=== PATIENT | female | born 1955 | race Caucasian/White ===

== ENCOUNTER 2016-04-19 13:51 | Inpatient (IN) | payer MEDICAID ==
--- NOTE | 2016-04-19 14:25 | ED Physician Chart ---
Chief Complaint/HPI - Patient Information Date Seen:: 04/19/16 Time Seen:: 14:00 Chief Complaint:: disorientation History of Present Illness:: at mental health outpatient clinic patient was disoriented (thought it was the night and stated it looked dark outside). Almost fell twice; had to be caught. Developed frontal headache last night and has more left leg weakness than normal now. Last December fell hurting left leg which has been weak since then; uses a walker at home. Allergies:: Allergies Allergy/AdvReac Type Severity Reaction Status Date / Time No Known Allergies Allergy Verified 04/19/16 14:08 Vitals:: Vital Signs - 8 hr 04/19/16 14:08 Temp 97.8 F HR 92 RR 18 BP 152/76 O2 Sat % 97 Review:: EMS run form Reviewed Review of Systems - Review of Systems General/Constitutional: No fever, No chills Skin: No skin lesions Head: Headache Eyes: Acuity change ENT: No earache Neck: No neck pain Cardio Vascular: No chest pain Pulmonary: No SOB GI: No nausea, No vomiting G/U: No dysuria, No frequency Musculoskeletal: No bone or joint pain Endocrine: No polyuria, No polydipsia Psychiatric: Prior psych history, Depression Hematopoietic: No bruising Allergic/Immuno: No urticaria Neurological: Focal symptoms Past Medical History - Past Medical History Past Medical History: HTN, Other (major depression) Family History: Diabetes [place] Social History: Smoker, No Alcohol Surgical History: Cholecystectomy, Psychiatricy History: Depression Medication: None Family Medical History - Family Member Mother History Unknown: Yes Physical Exam - Physical Examination General/Constitutional: Well-developed, well-nourished, No distress Other Gen/Cons comments:: states does not know the year but answers other questions coherently Head: Atraumatic Eyes: Lids, conjuctiva normal, PERRL Skin: Nl inspection, No rash, No skin lesions, No ecchymosis ENMT: External ears, nose nl, TM canals nl, Nasal exam nl, Lips, teeth, gums nl , Oropharynx nl, Tonsils nl Neck: No nuchal rigidity Respiratory: Nl effort/Exclusion, Clear to Auscultation Cardio Vascular: RRR GI: No tenderness/rebounding/guarding, No organomegaly, No hernia, Nondistended , No mass/bruits : No CVA tenderness Extremities: No tenderness or effusion Other Neuro/Psych comments:: 1/ drooping left side of mouth; equal decreased hand strength; lifts both legs against gravity Misc: Normal back Labs/Radiology/EKG Results - Lab Results Comments:: Laboratory Results - last 24 hr 04/19/16 04/19/16 04/19/16 14:10 14:10 14:10 WBC 9.1 RBC 3.72 L Hgb 12.0 Hct 35.0 MCV 94.0 MCH 32.2 H MCHC Differential 34.3 RDW 11.0 L Plt Count 257 MPV 8.4 Neutrophils % 62.4 Lymphocytes % 30.0 Monocytes % 6.6 Eosinophils % 0.4 Basophils % 0.6 Sodium 131 L Potassium 3.9 Chloride 101 Carbon Dioxide 23.8 Anion Gap 10.1 BUN 10 Creatinine 0.5 L Est GFR ( Amer) > 60.0 Est GFR (Non-Af Amer) > 60.0 BUN/Creatinine Ratio 20.0 Glucose 99 Calcium 9.2 Magnesium 1.8 L Troponin I B-Natriuretic Peptide 12.9 04/19/16 14:10 WBC RBC Hgb Hct MCV MCH MCHC Differential RDW Plt Count MPV Neutrophils % Lymphocytes % Monocytes % Eosinophils % Basophils % Sodium Potassium Chloride Carbon Dioxide Anion Gap BUN Creatinine Est GFR ( Amer) Est GFR (Non-Af Amer) BUN/Creatinine Ratio Glucose Calcium Magnesium Troponin I < 0.01 L B-Natriuretic Peptide - Radiology Results Results: CT head: mild atrophy; CXR chest: negative - EKG Interpretations Rhythm: NSR [place]: normal Rate: 85 Comments:: no ST-T changes ED Septic Shock - . Is Septic Shock (SBP<90, OR Lactate>4 mmol\L) present?: No - <6hrs of presentation: Vital Signs: Vital Signs - 8 hr 04/19/16 14:08 Temp 97.8 F HR 92 RR 18 BP 152/76 O2 Sat % 97 Reassessment (Disposition) - Reassessment Reassessment Condition:: Unchanged - Diagnosis Diagnosis:: altered mental status - Patient Disposition Admitted to:: Med/Surg Spoke to:: Immanuel Wagner Admitting Medical Physician:: Immanuel Wagner Condition at Disposition:: Stable, Unchanged ED Discharge Plan - Patient Disposition Admit/Discharge/Transfer: Acute Care w/in this hosp Condition at Disposition: Improved
[2016-04-19] MEDS ORDERED: Sodium Chloride 0.9% 1,000 ML IV ONE ×2 (14:34→21:53)
[2016-04-19 14:53] LABS: % BASOPHILS 0.6 % (0.0-2.0); % EOSINOPHILS 0.4 % (0.0-5.0); % MONOCYTES 6.6 % (2.0-10.0); % NEUTROPHILS 62.4 % (40.0-80.0); MEAN CORPUSCULAR HEMOGLOBIN 32.2 pg (27.0-31.0); MEAN CORPUSCULAR HGB CONC 34.3 pg (28.0-36.0); MEAN PLATELET VOLUME 8.4 fl; NEUTROPHILE ABSOLUTE 5.7 Th/cmm (1.8-8.0); PLATELET COUNT 257 Th/cmm (150-400); RED BLOOD COUNT 3.72 Mil/cmm (3.80-5.10); WHITE BLOOD COUNT 9.1 Th/cmm (4.8-10.8)
[2016-04-19 15:05] LABS: ANION GAP 10.1 (7.0-16.0); BUN - UREA NITROGEN 10 mg/dL (7-25); CALCIUM SERUM 9.2 mg/dL (8.6-10.3); CARBON DIOXIDE 23.8 mEq/L (21.0-31.0); CHLORIDE 101 mEq/L (98-107); CREATININE - SERUM 0.5 mg/dL (0.6-1.2); GLUCOSE 99 mg/dL (70-105); MAGNESIUM 1.8 mg/dL (1.9-2.7); POTASSIUM SERUM 3.9 mEq/L (3.5-5.1); SODIUM SERUM 131 mEq/L (136-145)
--- NOTE | 2016-04-19 15:56 | Diagnostic Imaging Report ---
CT scan of the brain without intravenous contrast HISTORY: Stroke, CVA Total DLP equals 549 CTDI equals 34.0 Axial sections were obtained from the base of the skull to the vertex. There is a normal ventricular system size. There is slight prominence of cerebral sulci and subarachnoid cisterns reflecting mild atrophy. No acute parenchymal abnormalities. No intracerebral hemorrhage. No mass effect or shift of midline structures. No extra-axial masses or abnormal fluid collections. Atherosclerotic calcification seen in the region of the vertebral and basilar arteries at the base of the skull. IMPRESSION: 1. No acute abnormalities were 2. Mild cerebral atrophy 3. Mild atherosclerotic vascular changes
--- NOTE | 2016-04-19 15:57 | Diagnostic Imaging Report ---
Portable chest x-ray History: Shortness of breath Allowing for portable technique the heart size is normal. No focal pulmonary parenchymal processes. No hilar or mediastinal abnormalities. Impression: No acute abnormalities.
[2016-04-19 17:13] LABS: URINE BILIRUBIN NEGATIVE (NEGATIVE); URINE BLOOD NEGATIVE (NEGATIVE); URINE COLOR YELLOW; URINE GLUCOSE (UA) NEGATIVE (NEGATIVE); URINE KETONE NEGATIVE (NEGATIVE); URINE PROTEIN NEGATIVE (NEGATIVE); URINE RBC NONE SEEN /hpf (0-5); URINE UROBILINOGEN 0.2 E.U./dL (0.2 - 1.0); URINE WBC 0-2 /hpf (0-5)
[2016-04-19 17:14] LABS: URINE BACTERIA OCCASIONAL /hpf (NONE SEEN); URINE EPITHELIAL CELLS RARE /lpf (FEW)
--- NOTE | 2016-04-19 20:26 | Admit Criteria Form ---
Admit Criteria Forms - Admit Criteria Diagnosis: MENTAL STATUS CHANGE Clinical Indications for Inpatient Care (Place 'X' for any and all applicable criteria): Ongoing inpatient care may be needed for ANY ONE of the following(1)(2)(3)(5)(6) : [X]I. Suspected serious etiology (eg, medical disorder, FRE[employer] event) of mental status change [ ]II. Danger to self or others not manageable at lower level of care [ ]III. Grave disability (eg, inability to perform self care necessary at lower level of care) [ ]IV. Agitation or inappropriate behavior interfering with care for primary condition (eg, attempting to discontinue lines or drains prematurely, unable to cooperate with respiratory care) [ ]V. Delirium [A] [D][E] as described by ANY ONE of the following(26): [ ]a) Delirium due to alcohol or sedative [F] withdrawal [ ]b) Delirium of uncertain etiology that has not responded to appropriate empiric treatment [ ]c) Delirium that prevents performance of a life-sustaining function (eg, feeding or hydrating oneself) [ ]. General contraindications and/or Inappropriate clinical situations for Observational Care in patients with Mental Status Change, when ANY ONE of the following is required: [ ]a) Prediction of prolongation of LOS based on ANY ONE of the following may be considered as a contraindication for observational care 2, 3, 4, 5, 6, 7, 8, 9, 10, 11 [ ]i) Age > 65 yrs. [ ]ii) Patient arriving by ambulance [ ]iii) Patient with high acuity [ ]iv) Patient requiring vital sign monitoring [ ]v) Patient on IV medication [ ]b) Systolic blood pressures 180mmHg 3,12 [ ]c) Patient with altered mental status including delirium and other alteration of consciousness, (3) [ ]d) Patient whose discharge disposition will be to a nursing home home or rehabilitation home should not be managed in Emergency Department Observation Unit. CMS rule requires 3 days hospital stay before such placement.3,13 [ ]e) Patient with failure to thrive due to broad array of etiologies 3,16,17 [ ]f) Inability to ambulate 3,14 Extended stay beyond goal length of stay for the primary condition may be needed until ALL of the following are present(3)(5): [ ]a) Underlying medical etiology of mental status change is absent, or has been established and adequately treated [ ]b) Danger to self or others is absent or manageable at lower level of care. [ ]c) Behavior crisis management, including physical or chemical restraints, is not required or available at lower level of car [ ]d) Substance or alcohol withdrawal is absent or manageable at lower level of care. [ ]e) Behavioral symptoms (eg, agitation, somnolence, inappropriate behavior) are absent, or are manageable at lower level of care. The original [facility] content created by [facility] has been revised. The portions of the content which have been revised are identified through the use of italic text or in bold, and [facility] has neither reviewed nor approved the modified material. All other unmodified content is copyright [facility]. Please see references footnoted in the original [facility] edition 2016 Admit Criteria Met?: Yes
[2016-04-20] MEDS: HYDROmorphone 1 mg/mL 1mL Syr IVP PRN ×2 (01:39→16:38)
--- NOTE | 2016-04-20 08:48 | General Progress Note ---
Subjective - Review of Systems Service Date: 04/20/16 Subjective: Confused Objective - Results Result Diagrams: 04/19/16 14:10 04/19/16 14:10 Recent Labs: Laboratory Last Values WBC 9.1 Th/cmm (4.8-10.8) 04/19/16 14:10 RBC 3.72 Mil/cmm (3.80-5.10) L 04/19/16 14:10 Hgb 12.0 gm/dL (11.7-15.5) 04/19/16 14:10 Hct 35.0 % (35.0-45.0) 04/19/16 14:10 MCV 94.0 fl (81-100) 04/19/16 14:10 MCH 32.2 pg (27.0-31.0) H 04/19/16 14:10 MCHC Differential 34.3 pg (28.0-36.0) 04/19/16 14:10 RDW 11.0 % (11.5-20.0) L 04/19/16 14:10 Plt Count 257 Th/cmm (150-400) 04/19/16 14:10 MPV 8.4 fl 04/19/16 14:10 Neutrophils % 62.4 % (40.0-80.0) 04/19/16 14:10 Lymphocytes % 30.0 % (20.0-50.0) 04/19/16 14:10 Monocytes % 6.6 % (2.0-10.0) 04/19/16 14:10 Eosinophils % 0.4 % (0.0-5.0) 04/19/16 14:10 Basophils % 0.6 % (0.0-2.0) 04/19/16 14:10 Sodium 131 mEq/L (136-145) L 04/19/16 14:10 Potassium 3.9 mEq/L (3.5-5.1) 04/19/16 14:10 Chloride 101 mEq/L (98-107) 04/19/16 14:10 Carbon Dioxide 23.8 mEq/L (21.0-31.0) 04/19/16 14:10 Anion Gap 10.1 (7.0-16.0) 04/19/16 14:10 BUN 10 mg/dL (7-25) 04/19/16 14:10 Creatinine 0.5 mg/dL (0.6-1.2) L 04/19/16 14:10 Est GFR ( Amer) > 60.0 ml/min (>90) 04/19/16 14:10 Est GFR (Non-Af Amer) > 60.0 ml/min 04/19/16 14:10 BUN/Creatinine Ratio 20.0 04/19/16 14:10 Glucose 99 mg/dL (70-105) 04/19/16 14:10 Calcium 9.2 mg/dL (8.6-10.3) 04/19/16 14:10 Magnesium 1.8 mg/dL (1.9-2.7) L 04/19/16 14:10 Troponin I < 0.01 ng/mL (0.01-0.05) L 04/19/16 14:10 B-Natriuretic Peptide 12.9 pg/mL (5.0-100.0) 04/19/16 14:10 Urine Source RANDOM 04/19/16 16:15 Urine Color YELLOW 04/19/16 16:15 Urine Clarity CLEAR (CLEAR) 04/19/16 16:15 Urine pH 7.0 04/19/16 16:15 Ur Specific [place] 1.015 (1.005-1.030) 04/19/16 16:15 Urine Protein NEGATIVE mg/dL (NEGATIVE) 04/19/16 16:15 Urine Glucose (UA) NEGATIVE mg/dL (NEGATIVE) 04/19/16 16:15 Urine Ketones NEGATIVE mg/dL (NEGATIVE) 04/19/16 16:15 Urine Blood NEGATIVE (NEGATIVE) 04/19/16 16:15 Urine Nitrate NEGATIVE (NEGATIVE) 04/19/16 16:15 Urine Bilirubin NEGATIVE (NEGATIVE) 04/19/16 16:15 Urine Urobilinogen 0.2 E.U./dL (0.2 - 1.0) 04/19/16 16:15 Ur Leukocyte Esterase SMALL (NEGATIVE) H 04/19/16 16:15 Urine RBC NONE SEEN /hpf (0-5) 04/19/16 16:15 Urine WBC 0-2 /hpf (0-5) 04/19/16 16:15 Ur Epithelial Cells RARE /lpf (FEW) 04/19/16 16:15 Urine Bacteria OCCASIONAL /hpf (NONE SEEN) 04/19/16 16:15 - Physical Exam Vitals and I&O: Vital Signs Temp 99 F 04/20/16 04:00 Pulse 114 04/20/16 04:00 Resp 18 04/20/16 04:00 BP 125/68 04/20/16 04:00 Pulse Ox 92 04/20/16 04:00 Intake & Output 04/19/16 04/20/16 04/20/16 18:59 06:59 18:59 Other: Stool Characteristics Soft Formed Active Medications: Current Medications Acetaminophen (Tylenol) 650 mg PO Q6H PRN PRN Reason: MODERATE PAIN Stop: 06/18/16 21:45 Last Admin: 04/19/16 22:18 Dose: 650 mg Hydromorphone HCl (Dilaudid) 1 mg IVP Q4HR PRN PRN Reason: FOR SEVERE PAIN Stop: 06/18/16 21:47 Last Admin: 04/20/16 01:39 Dose: 1 mg Sodium Chloride (Nacl 0.9%) 1,000 mls @ 75 mls/hr IV .[id number] ONE Stop: 04/20/16 11:12 Last Admin: 04/19/16 22:17 Dose: 75 mls/hr Miscellaneous (Sertraline Hcl [Zoloft]) 100 mg PO DAILY JAMES Stop: 06/19/16 08:59 Ondansetron HCl (Zofran) 4 mg IV Q6H PRN PRN Reason: PRN FOR N/V Stop: 06/18/16 21:59 General: Other (Awake, confused, not responding to question) HEENT: Atraumatic Cardiovascular: Regular rate Lungs: Clear to auscultation Abdomen: Bowel sounds, Soft Extremities: Other Neurological: Other (Unstable gait) Skin: Other (warm and dry) Psych/Mental Status: Other (Confused) Assessment/Plan - Problem List Patient Problems: All Active Problems ALTERED (Acute ~04/19/16) - Assessment Assessment: Patient is awake, confused, not responding to question. We did not the base level of patient, will contact family. - Plan Plan: Psychiatric meds are stopped. Ammonia level request, consult with psychiatry is request.
[2016-04-20] MEDS ORDERED: ZIPRASIDONE HCL 80 MG PO SCH (09:00)
--- NOTE | 2016-04-20 09:07 | History & Physical ---
CHIEF COMPLAINT: Increase in confusion. HISTORY OF PRESENT ILLNESS: This is the case of a 61-year-old female who has history of mental illness. She is a patient of Psychiatry Clinic. The patient was found that she has been increasing in disorientation and confusion. She almost fell two times, increasing leg weakness, reason why the patient was brought to Emergency Room for evaluation and treatment. PAST MEDICAL HISTORY: The patient has past medical history of hypertension and major depression. SOCIAL HISTORY: It is not clear at this moment if the patient lives at home or in the facility. The patient denies alcohol, drugs, or smoking. FAMILY HISTORY: Diabetes mellitus. PAST SURGICAL HISTORY: Cholecystectomy and . MEDICATIONS: Reviewed. REVIEW OF SYSTEMS: Information was not obtained secondary to the patient's mental condition. PHYSICAL EXAMINATION: GENERAL: fairly nourished and developed female, awake, confused, not oriented, not responding to questions. HEENT: Head is normocephalic and atraumatic. Eyes: Pupils reactive to light. Nose: No evidence of nasal obstruction. Ears: No evidence of any discharge. Mouth: Fairly keep. LUNGS: Bilateral air entry. HEART: Regular rate and rhythm. ABDOMEN: Soft. Nontender. Bowel sound present. EXTREMITIES: Full movement of all extremities, but it seems that there is no muscle strength. NEUROLOGICAL: The patient is awake, alert, confused, not oriented, not responding to questions. Neurological examination was not completed secondary to the patient's mental condition. IMPRESSION: 1. Altered mental status. Increasing confusion. 2. History of depression. PLAN: 1. The patient will be admitted in the medical/surgical floor. 2. The patient will be continuing on home medications. 3. Consult with Psychiatry. 4. CBC, CMP, TSH at a.m. 5. Regular diet. JOB# [id number]
--- NOTE | 2016-04-21 03:59 | Consultation ---
The patient was seen, chart reviewed, discussed with staff. HISTORY OF PRESENT ILLNESS: The patient is a 61-year-old female who was seen in the presence of her caregiver, has a history of depression, anxiety, paranoia, still feeling restless at times. The patient reports feeling sad. The patient denied having wishes, suicidal thoughts, but at times she feels paranoid and thinking that people are watching her. PAST PSYCHIATRIC HISTORY: Prior hospitalization in February 2016 ____ [facility] as per report from caregiver. PAST MEDICAL HISTORY: Deferred to Dr. Bernard Landon. PSYCHOSOCIAL HISTORY: The patient requires care. She has a caregiver. The patient lives at home. MENTAL STATUS EXAMINATION: The patient is in bed, makes fair eye contact. Speech is minimal, short sentences, mostly in [place]. Affect seem to be depressed, somewhat paranoid. No auditory hallucinations, oriented to time, place and person. ASSESSMENT: Major depressive disorder with psychosis. PLAN: We will continue Zoloft 100 mg daily, Geodon was discontinued, use Zyprexa 2.5 mg p.o. at nighttime to help with paranoia, anxiety and fear. Monitor condition closely. [facility]# [id number]
[2016-04-21 06:25] LABS: % BASOPHILS 0.7 % (0.0-2.0); % EOSINOPHILS 0.8 % (0.0-5.0); % LYMPHOCYTES 26.9 % (20.0-50.0); % NEUTROPHILS 64.6 % (40.0-80.0); ALB/GLOB RATIO 1.5 (1.0-1.8); ALKALINE PHOSPHATASE 82 U/L (34-104); ANION GAP 5.8 (7.0-16.0); BILIRUBIN,TOTAL 0.3 mg/dL (0.3-1.0); BUN - UREA NITROGEN 8 mg/dL (7-25); CALCIUM SERUM 8.9 mg/dL (8.6-10.3); CARBON DIOXIDE 24.8 mEq/L (21.0-31.0); CHLORIDE 106 mEq/L (98-107); CREATININE - SERUM 0.4 mg/dL (0.6-1.2); GLUCOSE 87 mg/dL (70-105); HEMATOCRIT 30.4 % (35.0-45.0); HEMOGLOBIN 10.6 gm/dL (11.7-15.5); MEAN CELL VOLUME 94.7 fl (81-100); MEAN CORPUSCULAR HGB CONC 34.8 pg (28.0-36.0); MEAN PLATELET VOLUME 7.9 fl; NEUTROPHILE ABSOLUTE 3.4 Th/cmm (1.8-8.0); PLATELET COUNT 244 Th/cmm (150-400); POTASSIUM SERUM 3.6 mEq/L (3.5-5.1); RED BLOOD COUNT 3.21 Mil/cmm (3.80-5.10); RED CELL DISTRIBUTION WIDTH 11.2 % (11.5-20.0); SGOT 36 U/L (13-39); SGPT/ALT 26 U/L (7-52); SODIUM SERUM 133 mEq/L (136-145); WHITE BLOOD COUNT 5.2 Th/cmm (4.8-10.8)
--- NOTE | 2016-04-21 11:11 | History & Physical ---
HISTORY OF PRESENT ILLNESS: The patient is a 61-year-old. The patient admitted with depression and confusion. The patient with history of psychiatric illness. Seen in the psychiatric facility clinic. The patient is getting more paranoid and restless. Psychiatric report noted. PAST MEDICAL HISTORY: Hypertension and depression. MEDICATIONS: As per reconciliation. SOCIAL HISTORY: She does not smoke or drink. REVIEW OF SYSTEMS: On direct questioning, the patient no marked headache, no seizures. She will answer questions. No abdominal pain. No constipation or diarrhea. PHYSICAL EXAMINATION: VITAL SIGNS: Temperature 98.4, blood pressure 130/70, pulse is 74. NECK: Supple. No neck bruits. HEART: Sounds S1, S2. LUNGS: Clear. ABDOMEN: Soft. NEUROLOGIC: The patient is awake. She will give me her name. She tells me where she lives. She thought today was Saturday, but she did not know the month. Many times, she will avoid eye contact. She is able to name simple objects like pen and glasses. Cranial: Pupils react to light. No facial weakness. She will lift both arms up. No abnormal movements. Legs were equal. Reflexes -1. INVESTIGATIONS: CT scan of the head, no acute process. IMPRESSION: 1. Depression. 2. The patient with encephalopathy. 3. Psychosis. 4. Underlying history of hypertension. 5. Management as per Psychiatry. [facility]# [id number]
--- NOTE | 2016-04-21 11:43 | General Progress Note ---
Subjective - Review of Systems Service Date: 04/21/16 Subjective: I am better Objective - Results Result Diagrams: 04/21/16 05:10 04/21/16 05:10 Recent Labs: Laboratory Last Values WBC 5.2 Th/cmm (4.8-10.8) D 04/21/16 05:10 RBC 3.21 Mil/cmm (3.80-5.10) L 04/21/16 05:10 Hgb 10.6 gm/dL (11.7-15.5) L 04/21/16 05:10 Hct 30.4 % (35.0-45.0) L D 04/21/16 05:10 MCV 94.7 fl (81-100) 04/21/16 05:10 MCH 33.0 pg (27.0-31.0) H 04/21/16 05:10 MCHC Differential 34.8 pg (28.0-36.0) 04/21/16 05:10 RDW 11.2 % (11.5-20.0) L 04/21/16 05:10 Plt Count 244 Th/cmm (150-400) 04/21/16 05:10 MPV 7.9 fl 04/21/16 05:10 Neutrophils % 64.6 % (40.0-80.0) 04/21/16 05:10 Lymphocytes % 26.9 % (20.0-50.0) 04/21/16 05:10 Monocytes % 7.0 % (2.0-10.0) 04/21/16 05:10 Eosinophils % 0.8 % (0.0-5.0) 04/21/16 05:10 Basophils % 0.7 % (0.0-2.0) 04/21/16 05:10 Sodium 133 mEq/L (136-145) L 04/21/16 05:10 Potassium 3.6 mEq/L (3.5-5.1) 04/21/16 05:10 Chloride 106 mEq/L (98-107) 04/21/16 05:10 Carbon Dioxide 24.8 mEq/L (21.0-31.0) 04/21/16 05:10 Anion Gap 5.8 (7.0-16.0) L 04/21/16 05:10 BUN 8 mg/dL (7-25) 04/21/16 05:10 Creatinine 0.4 mg/dL (0.6-1.2) L 04/21/16 05:10 Est GFR ( Amer) > 60.0 ml/min (>90) 04/21/16 05:10 Est GFR (Non-Af Amer) > 60.0 ml/min 04/21/16 05:10 BUN/Creatinine Ratio 20.0 04/21/16 05:10 Glucose 87 mg/dL (70-105) 04/21/16 05:10 Calcium 8.9 mg/dL (8.6-10.3) 04/21/16 05:10 Magnesium 1.7 mg/dL (1.9-2.7) L 04/21/16 05:10 Total Bilirubin 0.3 mg/dL (0.3-1.0) 04/21/16 05:10 AST 36 U/L (13-39) 04/21/16 05:10 ALT 26 U/L (7-52) 04/21/16 05:10 Alkaline Phosphatase 82 U/L (34-104) 04/21/16 05:10 Ammonia 49 umol/L (16-53) 04/20/16 11:05 Troponin I < 0.01 ng/mL (0.01-0.05) L 04/19/16 14:10 B-Natriuretic Peptide 12.9 pg/mL (5.0-100.0) 04/19/16 14:10 Total Protein 5.9 gm/dL (6.0-8.3) L 04/21/16 05:10 Albumin 3.5 gm/dL (3.7-5.3) L 04/21/16 05:10 Globulin 2.4 gm/dL 04/21/16 05:10 Albumin/Globulin Ratio 1.5 (1.0-1.8) 04/21/16 05:10 TSH 1.42 uIU/ml (0.34-5.60) 04/21/16 05:10 Urine Source RANDOM 04/19/16 16:15 Urine Color YELLOW 04/19/16 16:15 Urine Clarity CLEAR (CLEAR) 04/19/16 16:15 Urine pH 7.0 04/19/16 16:15 Ur Specific [place] 1.015 (1.005-1.030) 04/19/16 16:15 Urine Protein NEGATIVE mg/dL (NEGATIVE) 04/19/16 16:15 Urine Glucose (UA) NEGATIVE mg/dL (NEGATIVE) 04/19/16 16:15 Urine Ketones NEGATIVE mg/dL (NEGATIVE) 04/19/16 16:15 Urine Blood NEGATIVE (NEGATIVE) 04/19/16 16:15 Urine Nitrate NEGATIVE (NEGATIVE) 04/19/16 16:15 Urine Bilirubin NEGATIVE (NEGATIVE) 04/19/16 16:15 Urine Urobilinogen 0.2 E.U./dL (0.2 - 1.0) 04/19/16 16:15 Ur Leukocyte Esterase SMALL (NEGATIVE) H 04/19/16 16:15 Urine RBC NONE SEEN /hpf (0-5) 04/19/16 16:15 Urine WBC 0-2 /hpf (0-5) 04/19/16 16:15 Ur Epithelial Cells RARE /lpf (FEW) 04/19/16 16:15 Urine Bacteria OCCASIONAL /hpf (NONE SEEN) 04/19/16 16:15 - Physical Exam Vitals and I&O: Vital Signs Temp 98.1 F 04/21/16 08:00 Pulse 92 04/21/16 08:00 Resp 18 04/21/16 08:00 BP 128/76 04/21/16 08:00 Pulse Ox 95 04/21/16 08:00 Intake & Output 04/20/16 04/21/16 04/21/16 18:59 06:59 18:59 Intake Total 200 Balance 200 Intake: Oral 200 Other: # Voids 2 Stool Characteristics Soft Formed Active Medications: Current Medications Acetaminophen (Tylenol) 650 mg PO Q6H PRN PRN Reason: MODERATE PAIN Stop: 06/18/16 21:45 Last Admin: 04/21/16 07:30 Dose: 650 mg Hydromorphone HCl (Dilaudid) 1 mg IVP Q4HR PRN PRN Reason: FOR SEVERE PAIN Stop: 06/18/16 21:47 Last Admin: 04/20/16 16:38 Dose: 1 mg Olanzapine (Zyprexa) 2.5 mg PO HS JAMES PRN Reason: Protocol Stop: 06/19/16 20:59 Ondansetron HCl (Zofran) 4 mg IV Q6H PRN PRN Reason: PRN FOR N/V Stop: 06/18/16 21:59 Sertraline HCl (Zoloft) 100 mg PO DAILY JAMES Stop: 06/19/16 08:59 Last Admin: 04/21/16 08:05 Dose: 100 mg General: Alert, Other (Confused) HEENT: Atraumatic Neck: Supple Cardiovascular: Regular rate Lungs: Clear to auscultation Abdomen: Bowel sounds, Soft Extremities: Other (No edema) Neurological: Other (Unstable gait) Skin: Other (Warm and dry) Psych/Mental Status: Other (Confused) Assessment/Plan - Problem List Patient Problems: All Active Problems ALTERED (Acute ~04/19/16) - Assessment Assessment: Patient is awake, confused. Patient already evaluated [facility]ry. Patient will be transfer to [facility] unit. - Plan Plan: Ammonia level normal. Patient will be transfered to [facility]
[2016-04-22] MEDS: HYDROmorphone 1 mg/mL 1mL Syr IVP PRN (14:18)
--- NOTE | 2016-04-22 17:59 | General Progress Note ---
Subjective - Review of Systems Service Date: 04/22/16 Subjective: I am better. Objective - Results Result Diagrams: 04/21/16 05:10 04/21/16 05:10 Recent Labs: Laboratory Last Values WBC 5.2 Th/cmm (4.8-10.8) D 04/21/16 05:10 RBC 3.21 Mil/cmm (3.80-5.10) L 04/21/16 05:10 Hgb 10.6 gm/dL (11.7-15.5) L 04/21/16 05:10 Hct 30.4 % (35.0-45.0) L D 04/21/16 05:10 MCV 94.7 fl (81-100) 04/21/16 05:10 MCH 33.0 pg (27.0-31.0) H 04/21/16 05:10 MCHC Differential 34.8 pg (28.0-36.0) 04/21/16 05:10 RDW 11.2 % (11.5-20.0) L 04/21/16 05:10 Plt Count 244 Th/cmm (150-400) 04/21/16 05:10 MPV 7.9 fl 04/21/16 05:10 Neutrophils % 64.6 % (40.0-80.0) 04/21/16 05:10 Lymphocytes % 26.9 % (20.0-50.0) 04/21/16 05:10 Monocytes % 7.0 % (2.0-10.0) 04/21/16 05:10 Eosinophils % 0.8 % (0.0-5.0) 04/21/16 05:10 Basophils % 0.7 % (0.0-2.0) 04/21/16 05:10 Sodium 133 mEq/L (136-145) L 04/21/16 05:10 Potassium 3.6 mEq/L (3.5-5.1) 04/21/16 05:10 Chloride 106 mEq/L (98-107) 04/21/16 05:10 Carbon Dioxide 24.8 mEq/L (21.0-31.0) 04/21/16 05:10 Anion Gap 5.8 (7.0-16.0) L 04/21/16 05:10 BUN 8 mg/dL (7-25) 04/21/16 05:10 Creatinine 0.4 mg/dL (0.6-1.2) L 04/21/16 05:10 Est GFR ( Amer) > 60.0 ml/min (>90) 04/21/16 05:10 Est GFR (Non-Af Amer) > 60.0 ml/min 04/21/16 05:10 BUN/Creatinine Ratio 20.0 04/21/16 05:10 Glucose 87 mg/dL (70-105) 04/21/16 05:10 Calcium 8.9 mg/dL (8.6-10.3) 04/21/16 05:10 Magnesium 1.7 mg/dL (1.9-2.7) L 04/21/16 05:10 Total Bilirubin 0.3 mg/dL (0.3-1.0) 04/21/16 05:10 AST 36 U/L (13-39) 04/21/16 05:10 ALT 26 U/L (7-52) 04/21/16 05:10 Alkaline Phosphatase 82 U/L (34-104) 04/21/16 05:10 Ammonia 49 umol/L (16-53) 04/20/16 11:05 Troponin I < 0.01 ng/mL (0.01-0.05) L 04/19/16 14:10 B-Natriuretic Peptide 12.9 pg/mL (5.0-100.0) 04/19/16 14:10 Total Protein 5.9 gm/dL (6.0-8.3) L 04/21/16 05:10 Albumin 3.5 gm/dL (3.7-5.3) L 04/21/16 05:10 Globulin 2.4 gm/dL 04/21/16 05:10 Albumin/Globulin Ratio 1.5 (1.0-1.8) 04/21/16 05:10 TSH 1.42 uIU/ml (0.34-5.60) 04/21/16 05:10 Urine Source RANDOM 04/19/16 16:15 Urine Color YELLOW 04/19/16 16:15 Urine Clarity CLEAR (CLEAR) 04/19/16 16:15 Urine pH 7.0 04/19/16 16:15 Ur Specific [place] 1.015 (1.005-1.030) 04/19/16 16:15 Urine Protein NEGATIVE mg/dL (NEGATIVE) 04/19/16 16:15 Urine Glucose (UA) NEGATIVE mg/dL (NEGATIVE) 04/19/16 16:15 Urine Ketones NEGATIVE mg/dL (NEGATIVE) 04/19/16 16:15 Urine Blood NEGATIVE (NEGATIVE) 04/19/16 16:15 Urine Nitrate NEGATIVE (NEGATIVE) 04/19/16 16:15 Urine Bilirubin NEGATIVE (NEGATIVE) 04/19/16 16:15 Urine Urobilinogen 0.2 E.U./dL (0.2 - 1.0) 04/19/16 16:15 Ur Leukocyte Esterase SMALL (NEGATIVE) H 04/19/16 16:15 Urine RBC NONE SEEN /hpf (0-5) 04/19/16 16:15 Urine WBC 0-2 /hpf (0-5) 04/19/16 16:15 Ur Epithelial Cells RARE /lpf (FEW) 04/19/16 16:15 Urine Bacteria OCCASIONAL /hpf (NONE SEEN) 04/19/16 16:15 - Physical Exam Vitals and I&O: Vital Signs Temp 98.2 F 04/22/16 16:00 Pulse 73 04/22/16 16:00 Resp 18 04/22/16 16:00 BP 107/60 04/22/16 16:00 Pulse Ox 95 04/22/16 16:00 Intake & Output 04/21/16 04/22/16 04/22/16 18:59 06:59 18:59 Intake Total 200 Balance 200 Intake: Oral 200 Other: # Voids 2 Active Medications: Current Medications Acetaminophen (Tylenol) 650 mg PO Q6H PRN PRN Reason: MODERATE PAIN Stop: 06/18/16 21:45 Last Admin: 04/21/16 20:11 Dose: 650 mg Hydromorphone HCl (Dilaudid) 1 mg IVP Q4HR PRN PRN Reason: FOR SEVERE PAIN Stop: 06/18/16 21:47 Last Admin: 04/22/16 14:18 Dose: 1 mg Olanzapine (Zyprexa) 2.5 mg PO HS JAMES PRN Reason: Protocol Stop: 06/19/16 20:59 Last Admin: 04/21/16 20:10 Dose: 2.5 mg Ondansetron HCl (Zofran) 4 mg IV Q6H PRN PRN Reason: PRN FOR N/V Stop: 06/18/16 21:59 Sertraline HCl (Zoloft) 100 mg PO DAILY JAMES Stop: 06/19/16 08:59 Last Admin: 04/22/16 08:14 Dose: 100 mg General: Alert, Cooperative, No acute distress HEENT: Atraumatic Neck: Supple Cardiovascular: Regular rate Lungs: Clear to auscultation Abdomen: Bowel sounds, Soft Extremities: Other (No edema) Neurological: Normal gait Skin: Other (Warm and dry) Psych/Mental Status: Other (Confused) Assessment/Plan - Problem List Patient Problems: All Active Problems ALTERED (Acute ~04/19/16) - Assessment Assessment: Patient is awake, confused. Patient already evaluated [facility]. Patient will be discharge home tomorrow. - Plan Plan: Ammonia level normal. Patient will be discharge home tomorrow.
--- NOTE | 2016-05-07 20:05 | Discharge Summary ---
CHIEF COMPLAINT: Increase in confusion. HISTORY OF PRESENT ILLNESS: This is the case of a 61-year-old female who was a known patient due to her mental illness. The environmental inspector found that the patient had increase in confusion and disorientation. She almost fell, increase in muscle weakness, reason why patient was brought to Emergency Room for evaluation and treatment. HOSPITAL COURSE AND TREATMENT: This patient was admitted to the medical surgical floor. She was started on IV normal saline, some psychiatry medications were stopped. She was continued with the rest of her home medications. Consult with Neurology and Psychiatry were done and recommendation were followed. Psychiatry changed some psychiatric medications and with this treatment and after 4 days in the hospital, it was considered the patient receive the maximum benefit of hospitalization and she can be sent home back. At the moment of the discharge, the patient was awake, alert, not oriented. OBSTETRIC ASSISTANT ON THIS CASE: Psychiatry and Neurology. DISPOSITION: The patient is sent back home to continue treatment with her PCP. IMPRESSION: 1. Increase in confusion. 2. History of depression. 3. Psychosis. JOB# [id number]
== END 2016-04-23 10:07 | disposition home or self-care (01) | DRG 52 ==
LOC: ER 13:51 → MSI 16:05 → UNDODISIN 04-21 12:46
PROVIDERS: ADMIT General Practice; ATTEND General Practice
DX: G93.40 Encephalopathy, unspecified (principal); E87.1 Hypo-osmolality and hyponatremia; I10 Essential (primary) hypertension; F17.210 Nicotine dependence, cigarettes, uncomplicated; F41.9 Anxiety disorder, unspecified; F32.9 Major depressive disorder, single episode, unspecified; F29 Unspecified psychosis not due to a substance or known physiological condition; Z83.3 Family history of diabetes mellitus; Z90.49 Acquired absence of other specified parts of digestive tract
CPT/HCPCS: 36415-UA; 70450-TC; 71010-TC; 80048-TC; 80053-TC; 81001-TC; 82140-TC; 83735-TC; 83880-TC; 84443-TC; 84484-TC; 85025-TC; 93005; J1170; J7030; Z7610